=== PATIENT | male | born 1965 | race Caucasian/White ===

== ENCOUNTER 2017-10-28 04:22 | Emergency (ER) | payer MEDICAID, MEDICARE ==
[~2017-10-28] VITALS: Ht 175.3 cm; Wt 63.5 kg
[~2017-10-28 04:22] MED LIST: DULO20CA PO; QUET25TA PO
[2017-10-28 04:33] VITALS: BP 142/92
[2017-10-28] MEDS ORDERED: PENICILLIN G BENZATHINE 2.4 MMU/4 ML ML IM ONE ×2 (04:53→05:00)
== END 2017-10-28 05:09 | disposition home or self-care (01) ==
LOC: ER 04:29
DX: A53.9 Syphilis, unspecified (principal); A60.00 Herpesviral infection of urogenital system, unspecified; I10 Essential (primary) hypertension; J44.9 Chronic obstructive pulmonary disease, unspecified; F32.9 Major depressive disorder, single episode, unspecified; F17.200 Nicotine dependence, unspecified, uncomplicated
CPT/HCPCS: 96372; 99283; A4606; J0558; Z7610

== ENCOUNTER 2019-10-20 21:26 | Emergency (ER) | payer MEDICARE ==
[~2019-10-20] VITALS: Ht 175.3 cm; Wt 62.6 kg
[2019-10-20 21:51] VITALS: BP 116/87
--- NOTE | 2019-10-20 22:19 | NUR ---
steristrips and cleaning on the laceration on bridge of nose
--- NOTE | 2019-10-20 22:20 | NUR ---
Patient discharged to home in stable condition. Written and verbal after care instructions given. Patient verbalizes understanding of instruction.
== END 2019-10-20 22:21 | disposition home or self-care (01) ==
LOC: ER 21:29
DX: S00.83XA Contusion of other part of head, initial encounter (principal); I10 Essential (primary) hypertension; J44.9 Chronic obstructive pulmonary disease, unspecified; F32.9 Major depressive disorder, single episode, unspecified; F17.200 Nicotine dependence, unspecified, uncomplicated; Z60.2 Problems related to living alone; Z79.899 Other long term (current) drug therapy; Y08.89XA Assault by other specified means, initial encounter; Y93.01 Activity, walking, marching and hiking; Y92.89 Other specified places as the place of occurrence of the external cause; Y99.8 Other external cause status

== ENCOUNTER 2020-07-06 18:28 | Emergency (ER) | payer MEDICARE, OTHER ==
[~2020-07-06] VITALS: Ht 175.3 cm; Wt 60.3 kg
[2020-07-06 18:35] VITALS: BP 143/121
[2020-07-06] MEDS ORDERED: FLUORESCEIN SODIUM OPHTH 1 EA STRIP ONE (18:51)
[2020-07-06] MEDS ORDERED: PENICILLIN G BENZATHINE 2.4 MMU/4 ML ML IM ONE ×2 (18:59→19:00)
--- NOTE | 2020-07-06 19:10 | NUR ---
Patient discharged to home in stable condition. Written and verbal after care instructions given. Patient verbalizes understanding of instruction. Pt ambulatory with a steady gait
== END 2020-07-06 19:12 | disposition home or self-care (01) ==
LOC: ER 18:30
DX: S00.12XA Contusion of left eyelid and periocular area, initial encounter (principal); A53.9 Syphilis, unspecified; I10 Essential (primary) hypertension; J44.9 Chronic obstructive pulmonary disease, unspecified; F32.9 Major depressive disorder, single episode, unspecified; F17.200 Nicotine dependence, unspecified, uncomplicated; Z79.899 Other long term (current) drug therapy; Z60.2 Problems related to living alone; W22.8XXA Striking against or struck by other objects, initial encounter; Y93.89 Activity, other specified; Y92.89 Other specified places as the place of occurrence of the external cause; Y99.8 Other external cause status
CPT/HCPCS: 96372; 99283; J0558